=== PATIENT | female | born 1965 | race Two or more races ===

== ENCOUNTER 2017-10-20 08:10 | Inpatient (IN) | payer OTHER ==
[~2017-10-20] VITALS: Ht 162.6 cm; Wt 70.3 kg
[2017-10-20] MEDS ORDERED: HYDROCHLOROTH12.5 M1 PO (08:58)
[2017-10-20] MEDS ORDERED: LISINOPRIL5 MG PO (08:58)
== END 2017-10-31 15:21 | disposition home or self-care (01) | DRG 331 ==
LOC: EDUNIT# 08:15 → SURH 10-28 07:45 → O/R 10-28 07:45 → SURH 10-28 08:15
PROVIDERS: Colon & Rectal Surgery
PROC: 0DTP4ZZ Resection of Rectum, Percutaneous Endoscopic Approach (ICD-10-PCS; 2017-10-28)
PROC: 07TC4ZZ Resection of Pelvis Lymphatic, Percutaneous Endoscopic Approach (ICD-10-PCS; 2017-10-28)
PROC: 0DJD8ZZ Inspection of Lower Intestinal Tract, Via Natural or Artificial Opening Endoscopic (ICD-10-PCS; 2017-10-28)
PROC: 0DTN4ZZ Resection of Sigmoid Colon, Percutaneous Endoscopic Approach (ICD-10-PCS; principal; 2017-10-28 19:15)
DX: C20 Malignant neoplasm of rectum (principal); I11.9 Hypertensive heart disease without heart failure

== ENCOUNTER 2017-10-27 06:30 | Day surgery (SDC) | payer OTHER ==
[~2017-10-27 06:30] MED LIST: HYDROCHLOROTH12.5 M1 PO; LISINOPRIL5 MG PO
== END 2017-10-27 12:15 | disposition home or self-care (01) ==
LOC: AMB-ENDOS 06:30
DX: C20 Malignant neoplasm of rectum (principal); K64.1 Second degree hemorrhoids

== ENCOUNTER 2018-10-29 06:38 | Day surgery (SDC) | payer OTHER | END 2018-10-29 11:40 | disposition home or self-care (01) | LOC: AMB-ENDOS 06:38 | DX: K64.1 Second degree hemorrhoids (principal) ==